=== PATIENT | female | born 1945 | race Caucasian/White ===

== ENCOUNTER 2016-10-31 08:08 | Day surgery (SDC) | payer MEDICARE, OTHER ==
[~2016-10-31 08:08] MED LIST: EPINEPHrine 1:10,000 1 MG/10 ML Syringe ONE; Lactated Ringers 1,000 ML IV SCH; Lactated Ringers 1,000 ML ONE; Lidocaine 2% 5 ML SDV ONE; Midazolam 1 MG/ML 2 ML SDV ONE; Propofol 200 MG/20 ML SDV ONE; Sodium Chloride 0.9% 5 ML Syringe FLUSH PRN; fentaNYL 100 MCG/2 ML SDV ONE
[2016-10-31] MEDS ORDERED: fentaNYL 100 MCG/2 ML SDV IV ONE (09:00)
[2016-10-31] MEDS ORDERED: Midazolam 1 MG/ML 2 ML SDV IV ONE (09:00)
[2016-10-31] MEDS ORDERED: EPINEPHrine 1:10,000 1 MG/10 ML Syringe ONE (09:14)
--- NOTE | 2016-10-31 10:12 | PCM.OPNOTE ---
- General Post-Op/Procedure Note Date of Surgery/Procedure: 10/31/16 Operative Procedure(s): Upper GI endoscopy with biopsy. Primary Surgeon: Steffany Bailey Complications: None Condition: Good Free Text/Narrative:: INFORMED CONSENT: Patient is here today for elective upper GI endoscopy. All aspects of this procedure have been discussed with the patient. All possible complications also, including possibility of perforation, infection, pain, bleeding, numbness of the throat, swallowing difficulty and unknown complications. In the event of perforation the patient may need surgical exploration to repair the defect. The patient understands fully well. Patient did not have any further questions for me at the end of my interview. The patient wishes for me to proceed. INSTRUMENT USED: Video gastroscope ANESTHESIA: [MAC] ASA CLASSIFICATION: [2] PROCEDURE PERFORMED: [upper GI endoscopy with biopsy] PHARYNX: Normal. ESOPHAGUS: Normal. Proximal: Normal. Middle: Normal. Lower: Normal. GE Junction: Normal. STOMACH: Normal. Cardia: Normal. Fundus: Normal. Lesser Curvature: an abnormal hyperemic area with white pustular lesions were seen. Size is approximately 2 cm. Multiple biopsies were taken. approximately 1 cc of epinephrine one is to 10,000 was placed in this area for vasoconstriction and to prevent post procedure bleeding. Greater Curvature: Normal. Antrum: Normal. Pylorus: Normal. DUODENUM: Normal. First Part: Normal. Second Part: Normal. Third Part: Normal. RETROFLEXION: Normal. BIOPSY: None. TOLERANCE: Excellent. COMPLICATIONS: None. Final diagnosis: Abnormal area/growth of the lesser curvature. Photographs taken biopsies are pending.
[2016-10-31 16:31] VITALS: BP 133/75
== END 2016-10-31 11:15 | disposition home or self-care (01) ==
LOC: KA.SDS 08:08
PROVIDERS: ATTEND Family Medicine
DX: K31.7 Polyp of stomach and duodenum (principal); K25.9 Gastric ulcer, unspecified as acute or chronic, without hemorrhage or perforation; I10 Essential (primary) hypertension; E78.5 Hyperlipidemia, unspecified; E66.9 Obesity, unspecified; Z88.2 Allergy status to sulfonamides; Z88.8 Allergy status to other drugs, medicaments and biological substances; Z91.018 Allergy to other foods; Z79.899 Other long term (current) drug therapy; Z68.30 Body mass index [BMI] 30.0-30.9, adult
CPT/HCPCS: 00740; 43239; J0171; J2250; J3010; 88305

== ENCOUNTER 2016-12-19 07:14 | Day surgery (SDC) | payer MEDICARE, OTHER ==
[~2016-12-19 07:14] MED LIST changes: -EPINEPHrine 1:10,000 1 MG/10 ML Syringe ONE; -Lactated Ringers 1,000 ML ONE; -Lidocaine 2% 5 ML SDV ONE; -Midazolam 1 MG/ML 2 ML SDV ONE; -Propofol 200 MG/20 ML SDV ONE; -fentaNYL 100 MCG/2 ML SDV ONE
[2016-12-19] MEDS ORDERED: Propofol 200 MG/20 ML SDV ONE (07:22)
[2016-12-19] MEDS ORDERED: Midazolam 1 MG/ML 2 ML SDV ONE (07:22)
[2016-12-19] MEDS ORDERED: fentaNYL 100 MCG/2 ML SDV ONE (07:22)
[2016-12-19] MEDS ORDERED: Lidocaine 2% 5 ML SDV ONE (07:23)
[2016-12-19] MEDS ORDERED: EPINEPHrine 1:10,000 1 MG/10 ML Syringe ONE ×2 (07:23→08:45)
[2016-12-19] MEDS ORDERED: Propofol 200 MG/20 ML SDV IV ONE (07:30)
[2016-12-19] MEDS ORDERED: Midazolam 1 MG/ML 2 ML SDV IV ONE (07:30)
[2016-12-19] MEDS ORDERED: fentaNYL 100 MCG/2 ML SDV IV ONE (07:30)
--- NOTE | 2016-12-19 10:07 | PCM.OPNOTE ---
- General Post-Op/Procedure Note Date of Surgery/Procedure: 12/19/16 Operative Procedure(s): Upper GI endoscopy and polypectomy x2 Findings: upper GI endoscopy and polypectomy x2 Pre Op Diagnosis: Large polyp of the lesser curvature Post-Op Diagnosis: Large polyp of the lesser curvature and multiple small polyps throughout the mucosa of the stomach Anesthesia Technique: MAC Primary Surgeon: Steffany Bailey Complications: None Condition: Good Free Text/Narrative:: INFORMED CONSENT: Patient is here today for elective upper GI endoscopy. All aspects of this procedure have been discussed with the patient. All possible complications also, including possibility of perforation, infection, pain, bleeding, numbness of the throat, swallowing difficulty and unknown complications. In the event of perforation the patient may need surgical exploration to repair the defect. The patient understands fully well. Patient did not have any further questions for me at the end of my interview. The patient wishes for me to proceed. INSTRUMENT USED: Video gastroscope ANESTHESIA: [MAC] ASA CLASSIFICATION: [2] PROCEDURE PERFORMED: [upper GI endoscopy and polypectomy x2] PHARYNX: Normal. ESOPHAGUS: Normal. Proximal: Normal. Middle: Normal. Lower: Normal. GE Junction: Normal. STOMACH: Normal. Cardia: Normal. Fundus: Normal. Lesser Curvature: A moderately enlarged polyp was identified along the lesser curvature greater using a loop, electrocautery and injection of epinephrine one is to 10,000 I performed polypectomy. Observe the base. polypectomy of one of the smaller polyps was also performed in a similar fashion.There was no bleeding and no complication.. Greater Curvature: Normal. Antrum: Normal. Pylorus: Normal. DUODENUM: Normal. First Part: Normal. Second Part: Normal. Third Part: Normal. RETROFLEXION: Normal. BIOPSY: None. TOLERANCE: Excellent. COMPLICATIONS: None. Final diagnosis: Large polyp of the lesser curvature and multiple small polyps throughout the gastric mucosa. Procedure performed was polypectomy x2
[2016-12-19 11:18] VITALS: BP 124/66
== END 2016-12-19 10:15 | disposition home or self-care (01) ==
LOC: KA.SDS 07:14
PROVIDERS: ATTEND Family Medicine
DX: K31.7 Polyp of stomach and duodenum (principal); K21.9 Gastro-esophageal reflux disease without esophagitis; E66.9 Obesity, unspecified; I10 Essential (primary) hypertension; E78.5 Hyperlipidemia, unspecified; Z88.1 Allergy status to other antibiotic agents; Z91.09 Other allergy status, other than to drugs and biological substances; Z79.82 Long term (current) use of aspirin; Z79.899 Other long term (current) drug therapy; Z68.30 Body mass index [BMI] 30.0-30.9, adult
CPT/HCPCS: 00740; 43239; 88305; J0171; J2250; J2704; J3010; J7120

== ENCOUNTER 2021-01-02 12:12 | Observation (INO) | payer MEDICARE, OTHER ==
[2021-01-02] MEDS ORDERED: Ondansetron 4 MG/2 ML SDV IV PRN (12:15)
[2021-01-02] MEDS ORDERED: EPINEPHrine 1:10,000 1 MG/10 ML Syringe IVPUSH PRN (13:40)
[2021-01-02] MEDS ORDERED: Atropine 0.1 MG/ML 10 ML Syringe IVPUSH PRN (13:40)
[2021-01-02] MEDS ORDERED: Lidocaine 2% 100 MG/5 ML Syringe IVPUSH PRN (13:40)
[2021-01-02] MEDS ORDERED: Nitroglycerin 0.4 MG Tab.SL SL PRN (13:40)
[2021-01-02] MEDS: Dextrose 5%-0.45% NaCl 1,000 ML IV SCH ×2 (14:05→23:56)
[2021-01-02 14:41] LABS: CHLORIDE,CL 106 mmol/L (98-107); SODIUM,NA 144 mmol/L (136-145)
[2021-01-02] MEDS ORDERED: Acetaminophen 325 MG Tab PO PRN (15:37)
[2021-01-02] MEDS ORDERED: Ondansetron 4 MG/2 ML SDV IVPUSH PRN (15:38)
[2021-01-02] MEDS ORDERED: Non-Formulary Medication 1 Each (Carbidopa/Levodopa [Carbidopa-Levo 25-100 Mg Odt] 1 EACH PO PRN (17:19)
[2021-01-02] MEDS ORDERED: TIZANIDINE HCL 2 MG PO PRN (17:19)
[2021-01-02] MEDS: METOPROLOL TARTRATE 50 MG PO SCH (20:09)
[2021-01-02] MEDS ORDERED: OMEPRAZOLE 40 MG PO SCH (21:00)
[2021-01-03 06:06] VITALS: PULSE 71
--- NOTE | 2021-01-03 08:33 | PCM.PN ---
- Patient Data Vitals - Most Recent: Last Vital Signs Temp 97.9 F 01/03/21 06:06 Pulse 71 01/03/21 06:06 Resp 20 01/03/21 06:06 BP 158/77 H 01/03/21 06:06 Pulse Ox 92 L 01/03/21 06:06 Weight - Most Recent: 172 lb I&O - Last 24 Hours: Intake & Output 01/02/21 01/03/21 01/03/21 22:59 06:59 14:59 Intake Total 1274 974 Balance 1274 974 Lab Results Last 24 Hours: Laboratory Results - last 24 hr 01/02/21 01/02/21 01/02/21 Range/Units 13:55 13:55 14:50 WBC 7.84 (5.00-10.00) 10^3/uL RBC 4.76 (3.80-5.50) 10^6/uL Hgb 13.8 (12.0-16.0) g/dL Hct 43.0 (37.0-47.0) % MCV 90.3 (82.0-92.0) fL MCH 29.0 (27.0-31.0) pg MCHC 32.1 (32.0-36.0) g/dL RDW 13.8 (11.5-14.5) % Plt Count 194 (150-400) 10^3/uL MPV 10.4 (7.4-10.4) fL Immature Gran % (Auto) 0.1 (0.0-5.0) % Neut % (Auto) 85.5 H (50.0-70.0) % Lymph % (Auto) 8.3 L (20.0-40.0) % [place] % (Auto) 5.5 (2.0-8.0) % Eos % (Auto) 0.3 L (1.0-3.0) % Baso % (Auto) 0.3 (0.0-1.0) % Neut # (Auto) 6.71 (2.50-7.00) 10^3/uL Lymph # (Auto) 0.65 L (1.00-4.00) 10^3/uL [place] # (Auto) 0.43 (0.10-0.80) 10^3/uL Eos # (Auto) 0.02 L (0.10-0.30) 10^3/uL Baso # (Auto) 0.02 (0.00-0.10) 10^3/uL Immature Gran # (Auto) 0.01 (0.00-0.50) 10^3/uL Sodium 144 (136-145) mmol/L Potassium 4.0 (3.5-5.1) mmol/L Chloride 106 (98-107) mmol/L Carbon Dioxide 29.0 (21.0-32.0) mmol/L Anion Gap 13.0 (5-15) mmol/L BUN 26 H (7-18) mg/dL Creatinine 0.65 (0.51-1.17) mg/dL Est Cr Clr Drug Dosing 52.89 mL/min Estimated GFR (MDRD) > 60 mL/min Glucose 131 (70-140) mg/dL Calcium 8.6 L (8.7-10.3) mg/dL Total Bilirubin 0.8 (0.2-1.0) mg/dL AST 77 H (15-37) U/L ALT 73 H (14-63) U/L Alkaline Phosphatase 103 (46-116) U/L Troponin I High Sens 4.800 (0-51.000) pg/mL Total Protein 6.8 (6.4-8.2) g/dL Albumin 3.59 (3.40-5.00) g/dL SARS CoV-2 RNA Rapid KEILA Negative (NEGATIVE) 01/02/21 01/03/21 Range/Units 20:00 07:00 WBC 5.71 (5.00-10.00) 10^3/uL RBC 4.44 (3.80-5.50) 10^6/uL Hgb 12.9 (12.0-16.0) g/dL Hct 40.9 (37.0-47.0) % MCV 92.1 H (82.0-92.0) fL MCH 29.1 (27.0-31.0) pg MCHC 31.5 L (32.0-36.0) g/dL RDW 13.8 (11.5-14.5) % Plt Count 178 (150-400) 10^3/uL MPV 10.2 (7.4-10.4) fL Immature Gran % (Auto) 0.4 (0.0-5.0) % Neut % (Auto) 72.5 H (50.0-70.0) % Lymph % (Auto) 17.2 L (20.0-40.0) % [place] % (Auto) 8.1 H (2.0-8.0) % Eos % (Auto) 1.4 (1.0-3.0) % Baso % (Auto) 0.4 (0.0-1.0) % Neut # (Auto) 4.15 (2.50-7.00) 10^3/uL Lymph # (Auto) 0.98 L (1.00-4.00) 10^3/uL [place] # (Auto) 0.46 (0.10-0.80) 10^3/uL Eos # (Auto) 0.08 L (0.10-0.30) 10^3/uL Baso # (Auto) 0.02 (0.00-0.10) 10^3/uL Immature Gran # (Auto) 0.02 (0.00-0.50) 10^3/uL Sodium (136-145) mmol/L Potassium (3.5-5.1) mmol/L Chloride (98-107) mmol/L Carbon Dioxide (21.0-32.0) mmol/L Anion Gap (5-15) mmol/L BUN (7-18) mg/dL Creatinine (0.51-1.17) mg/dL Est Cr Clr Drug Dosing mL/min Estimated GFR (MDRD) mL/min Glucose (70-140) mg/dL Calcium (8.7-10.3) mg/dL Total Bilirubin (0.2-1.0) mg/dL AST (15-37) U/L ALT (14-63) U/L Alkaline Phosphatase (46-116) U/L Troponin I High Sens 5.600 (0-51.000) pg/mL Total Protein (6.4-8.2) g/dL Albumin (3.40-5.00) g/dL SARS CoV-2 RNA Rapid KEILA (NEGATIVE) Med Orders - Current: Current Medications Acetaminophen (Acetaminophen 325 Mg Tab) 650 mg PO Q6H PRN PRN Reason: Pain Amlodipine Besylate (Amlodipine 2.5 Mg TabOwn Med) 2.5 mg PO DAILY [facility] Atropine Sulfate (Atropine 0.1 Mg/Ml 10 Ml Syringe) 0 mg IVPUSH ASDIRECTED PRN PRN Reason: Heart. Epinephrine HCl (Epinephrine 1:10,000 1 Mg/10 Ml Syringe) 1 mg IVPUSH ASDIRECTED PRN PRN Reason: Heart. Fluticasone Propionate (Fluticasone Propionate Nasal [place] 16 Gm Bottle) 0 gm NASBOTH DAILY [facility] Dextrose/Sodium Chloride (Dextrose 5%-1/2 Ns) 1,000 mls @ 100 mls/hr IV ASDIRECTED [facility] Last Admin: 01/02/21 23:56 Dose: 100 mls/hr Documented by: Lidocaine HCl (Lidocaine 2% 100 Mg/5 Ml Syringe) 0 mg IVPUSH ASDIRECTED PRN PRN Reason: Heart. Nitroglycerin (Nitroglycerin 0.4 Mg Tab.Sl) 0.4 mg SL ASDIRECTED PRN PRN Reason: Heart. Duloxetine 60 Mg Cap 60 mg PO DAILY [facility] Lisinopril 40 Mg (TabletOwn Med) 40 mg PO DAILY [facility] Metoprolol Tartrate 50 Mg TabletOwn Med 50 mg PO BID [facility] Last Admin: 01/02/21 20:09 Dose: 50 mg Documented by: Omeprazole 40 Mg Cap (Own Med) 40 mg PO BEDTIME [facility] Last Admin: 01/02/21 20:09 Dose: 40 mg Documented by: Ropinirole 1 Mg (Tablet) 2 mg PO BEDTIME [facility] Last Admin: 01/02/21 20:10 Dose: 2 mg Documented by: Ondansetron HCl (Ondansetron 4 Mg/2 Ml Sdv) 4 mg IVPUSH Q6H PRN PRN Reason: Nausea/Vomiting Discontinued Medications Ondansetron HCl (Ondansetron 4 Mg/2 Ml Sdv) 4 mg IV Q8H PRN PRN Reason: Nausea/Vomiting - Patient Data Lab Results Last 24 hrs: Laboratory Results - last 24 hr 01/02/21 01/02/21 01/02/21 Range/Units 13:55 13:55 14:50 WBC 7.84 (5.00-10.00) 10^3/uL RBC 4.76 (3.80-5.50) 10^6/uL Hgb 13.8 (12.0-16.0) g/dL Hct 43.0 (37.0-47.0) % MCV 90.3 (82.0-92.0) fL MCH 29.0 (27.0-31.0) pg MCHC 32.1 (32.0-36.0) g/dL RDW 13.8 (11.5-14.5) % Plt Count 194 (150-400) 10^3/uL MPV 10.4 (7.4-10.4) fL Immature Gran % (Auto) 0.1 (0.0-5.0) % Neut % (Auto) 85.5 H (50.0-70.0) % Lymph % (Auto) 8.3 L (20.0-40.0) % [place] % (Auto) 5.5 (2.0-8.0) % Eos % (Auto) 0.3 L (1.0-3.0) % Baso % (Auto) 0.3 (0.0-1.0) % Neut # (Auto) 6.71 (2.50-7.00) 10^3/uL Lymph # (Auto) 0.65 L (1.00-4.00) 10^3/uL [place] # (Auto) 0.43 (0.10-0.80) 10^3/uL Eos # (Auto) 0.02 L (0.10-0.30) 10^3/uL Baso # (Auto) 0.02 (0.00-0.10) 10^3/uL Immature Gran # (Auto) 0.01 (0.00-0.50) 10^3/uL Sodium 144 (136-145) mmol/L Potassium 4.0 (3.5-5.1) mmol/L Chloride 106 (98-107) mmol/L Carbon Dioxide 29.0 (21.0-32.0) mmol/L Anion Gap 13.0 (5-15) mmol/L BUN 26 H (7-18) mg/dL Creatinine 0.65 (0.51-1.17) mg/dL Est Cr Clr Drug Dosing 52.89 mL/min Estimated GFR (MDRD) > 60 mL/min Glucose 131 (70-140) mg/dL Calcium 8.6 L (8.7-10.3) mg/dL Total Bilirubin 0.8 (0.2-1.0) mg/dL AST 77 H (15-37) U/L ALT 73 H (14-63) U/L Alkaline Phosphatase 103 (46-116) U/L Troponin I High Sens 4.800 (0-51.000) pg/mL Total Protein 6.8 (6.4-8.2) g/dL Albumin 3.59 (3.40-5.00) g/dL SARS CoV-2 RNA Rapid KEILA Negative (NEGATIVE) 01/02/21 01/03/21 Range/Units 20:00 07:00 WBC 5.71 (5.00-10.00) 10^3/uL RBC 4.44 (3.80-5.50) 10^6/uL Hgb 12.9 (12.0-16.0) g/dL Hct 40.9 (37.0-47.0) % MCV 92.1 H (82.0-92.0) fL MCH 29.1 (27.0-31.0) pg MCHC 31.5 L (32.0-36.0) g/dL RDW 13.8 (11.5-14.5) % Plt Count 178 (150-400) 10^3/uL MPV 10.2 (7.4-10.4) fL Immature Gran % (Auto) 0.4 (0.0-5.0) % Neut % (Auto) 72.5 H (50.0-70.0) % Lymph % (Auto) 17.2 L (20.0-40.0) % [place] % (Auto) 8.1 H (2.0-8.0) % Eos % (Auto) 1.4 (1.0-3.0) % Baso % (Auto) 0.4 (0.0-1.0) % Neut # (Auto) 4.15 (2.50-7.00) 10^3/uL Lymph # (Auto) 0.98 L (1.00-4.00) 10^3/uL [place] # (Auto) 0.46 (0.10-0.80) 10^3/uL Eos # (Auto) 0.08 L (0.10-0.30) 10^3/uL Baso # (Auto) 0.02 (0.00-0.10) 10^3/uL Immature Gran # (Auto) 0.02 (0.00-0.50) 10^3/uL Sodium (136-145) mmol/L Potassium (3.5-5.1) mmol/L Chloride (98-107) mmol/L Carbon Dioxide (21.0-32.0) mmol/L Anion Gap (5-15) mmol/L BUN (7-18) mg/dL Creatinine (0.51-1.17) mg/dL Est Cr Clr Drug Dosing mL/min Estimated GFR (MDRD) mL/min Glucose (70-140) mg/dL Calcium (8.7-10.3) mg/dL Total Bilirubin (0.2-1.0) mg/dL AST (15-37) U/L ALT (14-63) U/L Alkaline Phosphatase (46-116) U/L Troponin I High Sens 5.600 (0-51.000) pg/mL Total Protein (6.4-8.2) g/dL Albumin (3.40-5.00) g/dL SARS CoV-2 RNA Rapid KEILA (NEGATIVE) Result Diagrams: 01/03/21 07:00 01/02/21 13:55 Sepsis Event Note - Evaluation Sepsis Screening Result: No Definite Risk - Focused Exam Vital Signs: Vital Signs Temp Pulse Resp BP Pulse Ox 01/03/21 06:06 97.9 F 71 20 158/77 H 92 L 01/03/21 03:00 97.9 F 68 18 141/69 H 93 L 01/02/21 22:58 97.1 F 64 18 130/56 L 95 - Assessment Assessment:: LIve in [place], seen yesterday walking around town, went to dental office, started to get dizzy, nasusea, profuse sweating, went to dental, BP 150/90, advised to go to clinic, walk, stil sweating, vomiting 4-5x n clinic. 154/90 was highrest, No tacy, EKG normal, sweat went away. When movement she had had vomting. ?hearin loss, no cp been tired past several days, sleeping alot. Main hx HTN, HLD, famly hx heart. 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 At times she skips meds or double up on BP pills. Seems to have these epiusode monthly. Inner Ear. Dehyrdation. GERD Prediabetes Vit D deff Obesity Venous Insurriciency Arthrist Lumbar RLS Chronic Rhinitis Dermatitis
[2021-01-03] MEDS: METOPROLOL TARTRATE 50 MG PO SCH (08:51)
[2021-01-03 08:56] VITALS: BP 145/71
[2021-01-03] MEDS ORDERED: Non-Formulary Medication 1 Each (Psyllium [Metamucil] 0.52 GM Cap) PO SCH (09:00)
[2021-01-03] MEDS ORDERED: AMLODIPINE 2.5 MG PO SCH (09:00)
[2021-01-03] MEDS ORDERED: Fluticasone Propionate Nasal Spray 16 GM Bottle NASBOTH SCH (09:00)
[2021-01-03] MEDS ORDERED: Non-Formulary Medication 1 Each (Cholecalciferol (Vitamin D3) [Vitamin D3] 2,000 UNIT Caps PO SCH (09:00)
[2021-01-03] MEDS ORDERED: UBIDECARENONE 200 MG PO SCH (09:00)
[2021-01-03] MEDS ORDERED: LISINOPRIL 40 MG PO SCH (09:00)
[2021-01-03 10:10] LABS: ANION GAP 9.7 mmol/L (5-15); CHLORIDE,CL 106 mmol/L (98-107); SODIUM,NA 144 mmol/L (136-145)
--- NOTE | 2021-01-03 10:23 | PCM.DCSUM1 ---
Discharge Summary - Hospital Course Diagnosis: Stroke: No - Discharge Data Discharge Date: 01/03/21 Discharge Disposition: Home, Self-Care 01 Condition: Good - Referral to Home Health Primary Care Physician: Tori Tong MD - Patient Instructions Diet: Usual Diet as Tolerated, Drink 8-10+ Glasses/Day Activity: No Strenuous Activities Driving: May Drive Today Showering/Bathing: May Shower - Discharge Plan *PRESCRIPTION DRUG MONITORING PROGRAM REVIEWED*: Not Applicable *COPY OF PRESCRIPTION DRUG MONITORING REPORT IN PATIENT VIJAYA: Not Applicable Home Medications: Home Meds Carbidopa/Levodopa [Carbidopa-Levo 25-100 MG ODT] 1 each PO DAILY PRN 10/30/16 [History] Lisinopril 40 mg PO DAILY 10/30/16 [History] Metoprolol Tartrate [Lopressor] 50 mg PO BID 10/30/16 [History] Nystatin/Triamcinolone Crm [Mycolog Crm] 30 gm TOP BID PRN 10/30/16 [History] amLODIPine [Norvasc] 2.5 mg PO DAILY 10/30/16 [History] rOPINIRole [Requip] 2 mg PO BEDTIME 10/30/16 [History] tiZANidine HCl [Zanaflex] 2 mg PO DAILY PRN 10/30/16 [History] Omeprazole 40 mg PO BEDTIME 10/31/16 [History] Betamethasone Dipropionate [Diprosone 0.05% Crm] 15 gm TOP BID PRN 01/02/21 [History] Cholecalciferol (Vitamin D3) [Vitamin D3] 2,000 unit PO DAILY 01/02/21 [History] DULoxetine [Cymbalta] 60 mg PO DAILY 01/02/21 [History] Fluticasone Propionate [Flonase] 1 spray NASBOTH DAILY 01/02/21 [History] Psyllium [Metamucil] 0.52 gm PO DAILY 01/02/21 [History] Ubidecarenone [Coenzyme Q-10] 200 mg PO DAILY 01/02/21 [History] - Discharge Summary/Plan Comment DC Time >30 min.: Yes Discharge Summary/Plan Comment: History summary (history from patient and received over the phone from admitting provider as no H&P on file to date) Ms Quintanilla is a 75-year-old female that was admitted by Shantell Bustamante PA-C due to dizziness with a working diagnosis of suspected Mnire's disease. Patient was walking around town yesterday went to dental office then started getting dizzy with significant nausea profuse sweating. BP at dental office 150/90 she was advised to seek care. Admitting provider describes her clinical course as significant profuse sweating eventually abating, initial BP 154/90, no tachycardia, normal EKG, significant vomiting however no chest pain. In speaking with patient and family patient seems to have episodic at least once a month of similar symptoms. Denies hearing loss however does wear hearing aids with frequent ear infections as a child. No immunological/rheumatological disorders. 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 Main past medical history includes hypertension, chronic rhinitis with polyp history, hyperlipidemia family hx disease, prediabetes, acid reflux which she states not controlled, vitamin D deficiency, venous insufficiency and arthritis in her lumbar region along with restless legs syndrome with breakthrough symptoms. Primary problems Vertigo, suspect volume deficit/stress-induced-- doubtful Mnire's or vestibular etiology based off of history, clinical exam findings Medication changes/adjustments upon discharge None, continue all medications, advised not to skip meds Disposition/overall plan Patient will be discharged from outpatient status, she was ambulated on the floor and hydrated last night, back to her baseline, no dizziness, vertigo, nystagmus, well hydrated with no edema. She was advised to reduce stress, may have to see ENT, stay well-hydrated she will see her PCP Dr. Tong for follow-up - General Info Functional Status: Reports: Pain Controlled, Tolerating Diet, Ambulating, Urinating - Review of Systems General: Reports: No Symptoms HEENT: Reports: No Symptoms Pulmonary: Denies: Shortness of Breath, Pleuritic Chest Pain, Cough, Wheezing Cardiovascular: Denies: Chest Pain, Orthopnea, PND, Edema Gastrointestinal: Denies: Nausea, Vomiting Genitourinary: Reports: No Symptoms Musculoskeletal: Reports: No Symptoms Skin: Reports: No Symptoms Neurological: Denies: Confusion, Dizziness, Weakness Psychiatric: Reports: Anxiety (chronic) - Patient Data Vitals - Most Recent: Last Vital Signs Temp 97.9 F 01/03/21 06:06 Pulse 71 01/03/21 06:06 Resp 20 01/03/21 06:06 BP 145/71 H 01/03/21 08:55 Pulse Ox 92 L 01/03/21 06:06 Weight - Most Recent: 172 lb I&O - Last 24 hours: Intake & Output 01/02/21 01/03/21 01/03/21 22:59 06:59 14:59 Intake Total 1274 974 Balance 1274 974 Lab Results - Last 24 hrs: Laboratory Results - last 24 hr 01/02/21 01/02/21 01/02/21 Range/Units 13:55 13:55 14:50 WBC 7.84 (5.00-10.00) 10^3/uL RBC 4.76 (3.80-5.50) 10^6/uL Hgb 13.8 (12.0-16.0) g/dL Hct 43.0 (37.0-47.0) % MCV 90.3 (82.0-92.0) fL MCH 29.0 (27.0-31.0) pg MCHC 32.1 (32.0-36.0) g/dL RDW 13.8 (11.5-14.5) % Plt Count 194 (150-400) 10^3/uL MPV 10.4 (7.4-10.4) fL Immature Gran % (Auto) 0.1 (0.0-5.0) % Neut % (Auto) 85.5 H (50.0-70.0) % Lymph % (Auto) 8.3 L (20.0-40.0) % [place] % (Auto) 5.5 (2.0-8.0) % Eos % (Auto) 0.3 L (1.0-3.0) % Baso % (Auto) 0.3 (0.0-1.0) % Neut # (Auto) 6.71 (2.50-7.00) 10^3/uL Lymph # (Auto) 0.65 L (1.00-4.00) 10^3/uL [place] # (Auto) 0.43 (0.10-0.80) 10^3/uL Eos # (Auto) 0.02 L (0.10-0.30) 10^3/uL Baso # (Auto) 0.02 (0.00-0.10) 10^3/uL Immature Gran # (Auto) 0.01 (0.00-0.50) 10^3/uL Sodium 144 (136-145) mmol/L Potassium 4.0 (3.5-5.1) mmol/L Chloride 106 (98-107) mmol/L Carbon Dioxide 29.0 (21.0-32.0) mmol/L Anion Gap 13.0 (5-15) mmol/L BUN 26 H (7-18) mg/dL Creatinine 0.65 (0.51-1.17) mg/dL Est Cr Clr Drug Dosing 52.89 mL/min Estimated GFR (MDRD) > 60 mL/min Glucose 131 (70-140) mg/dL Calcium 8.6 L (8.7-10.3) mg/dL Total Bilirubin 0.8 (0.2-1.0) mg/dL AST 77 H (15-37) U/L ALT 73 H (14-63) U/L Alkaline Phosphatase 103 (46-116) U/L Troponin I High Sens 4.800 (0-51.000) pg/mL Total Protein 6.8 (6.4-8.2) g/dL Albumin 3.59 (3.40-5.00) g/dL SARS CoV-2 RNA Rapid [facility] Negative (NEGATIVE) 01/02/21 01/03/21 Range/Units 20:00 07:00 WBC 5.71 (5.00-10.00) 10^3/uL RBC 4.44 (3.80-5.50) 10^6/uL Hgb 12.9 (12.0-16.0) g/dL Hct 40.9 (37.0-47.0) % MCV 92.1 H (82.0-92.0) fL MCH 29.1 (27.0-31.0) pg MCHC 31.5 L (32.0-36.0) g/dL RDW 13.8 (11.5-14.5) % Plt Count 178 (150-400) 10^3/uL MPV 10.2 (7.4-10.4) fL Immature Gran % (Auto) 0.4 (0.0-5.0) % Neut % (Auto) 72.5 H (50.0-70.0) % Lymph % (Auto) 17.2 L (20.0-40.0) % [place] % (Auto) 8.1 H (2.0-8.0) % Eos % (Auto) 1.4 (1.0-3.0) % Baso % (Auto) 0.4 (0.0-1.0) % Neut # (Auto) 4.15 (2.50-7.00) 10^3/uL Lymph # (Auto) 0.98 L (1.00-4.00) 10^3/uL [place] # (Auto) 0.46 (0.10-0.80) 10^3/uL Eos # (Auto) 0.08 L (0.10-0.30) 10^3/uL Baso # (Auto) 0.02 (0.00-0.10) 10^3/uL Immature Gran # (Auto) 0.02 (0.00-0.50) 10^3/uL Sodium (136-145) mmol/L Potassium (3.5-5.1) mmol/L Chloride (98-107) mmol/L Carbon Dioxide (21.0-32.0) mmol/L Anion Gap (5-15) mmol/L BUN (7-18) mg/dL Creatinine (0.51-1.17) mg/dL Est Cr Clr Drug Dosing mL/min Estimated GFR (MDRD) mL/min Glucose (70-140) mg/dL Calcium (8.7-10.3) mg/dL Total Bilirubin (0.2-1.0) mg/dL AST (15-37) U/L ALT (14-63) U/L Alkaline Phosphatase (46-116) U/L Troponin I High Sens 5.600 (0-51.000) pg/mL Total Protein (6.4-8.2) g/dL Albumin (3.40-5.00) g/dL SARS CoV-2 RNA Rapid KEILA (NEGATIVE) Med Orders - Current: Current Medications Acetaminophen (Acetaminophen 325 Mg Tab) 650 mg PO Q6H PRN PRN Reason: Pain Amlodipine Besylate (Amlodipine 2.5 Mg TabOwn Med) 2.5 mg PO DAILY [facility] Last Admin: 01/03/21 08:55 Dose: 2.5 mg Documented by: Atropine Sulfate (Atropine 0.1 Mg/Ml 10 Ml Syringe) 0 mg IVPUSH ASDIRECTED PRN PRN Reason: Heart. Epinephrine HCl (Epinephrine 1:10,000 1 Mg/10 Ml Syringe) 1 mg IVPUSH ASDIRECTED PRN PRN Reason: Heart. Fluticasone Propionate (Fluticasone Propionate Nasal [place] 16 Gm Bottle) 0 gm NASBOTH DAILY [facility] Last Admin: 01/03/21 08:54 Dose: 1 spray Documented by: Dextrose/Sodium Chloride (Dextrose 5%-1/2 Ns) 1,000 mls @ 100 mls/hr IV ASDIRECTED [facility] Last Admin: 01/02/21 23:56 Dose: 100 mls/hr Documented by: Lidocaine HCl (Lidocaine 2% 100 Mg/5 Ml Syringe) 0 mg IVPUSH ASDIRECTED PRN PRN Reason: Heart. Nitroglycerin (Nitroglycerin 0.4 Mg Tab.Sl) 0.4 mg SL ASDIRECTED PRN PRN Reason: Heart. Duloxetine 60 Mg Cap 60 mg PO DAILY [facility] Last Admin: 01/03/21 08:50 Dose: 60 mg Documented by: Lisinopril 40 Mg (TabletOwn Med) 40 mg PO DAILY [facility] Last Admin: 01/03/21 08:51 Dose: 40 mg Documented by: Metoprolol Tartrate 50 Mg TabletOwn Med 50 mg PO BID [facility] Last Admin: 01/03/21 08:51 Dose: 50 mg Documented by: Omeprazole 40 Mg Cap (Own Med) 40 mg PO BEDTIME [facility] Last Admin: 01/02/21 20:09 Dose: 40 mg Documented by: Ropinirole 1 Mg (Tablet) 2 mg PO BEDTIME [facility] Last Admin: 01/02/21 20:10 Dose: 2 mg Documented by: Ondansetron HCl (Ondansetron 4 Mg/2 Ml Sdv) 4 mg IVPUSH Q6H PRN PRN Reason: Nausea/Vomiting Discontinued Medications Ondansetron HCl (Ondansetron 4 Mg/2 Ml Sdv) 4 mg IV Q8H PRN PRN Reason: Nausea/Vomiting - Exam Quality Assessment: Denies: Supplemental Oxygen General: Reports: Alert, Oriented, Cooperative, No Acute Distress HEENT: Reports: Pupils Equal, Pupils Reactive Neck: Reports: Supple Lungs: Reports: Clear to Auscultation, Normal Respiratory Effort Cardiovascular: Reports: Regular Rate, Regular Rhythm, Tachycardia GI/Abdominal Exam: Normal Bowel Sounds (Female) Exam: Deferred Extremities: Normal Inspection. No: Pedal Edema Skin: Reports: Warm, Dry, Intact Neurological: Reports: Normal Gait, Normal Speech, Normal Tone, Other (no pronator drift) Psy/Mental Status: Reports: Alert, Normal Affect, Normal Mood. Denies: Labile Mood
== END 2021-01-03 11:00 | disposition home or self-care (01) ==
LOC: KA.MS 13:11
PROVIDERS: ADMIT Physician Assistant Medical; ATTEND Family Medicine
DX: R42 Dizziness and giddiness (principal); R11.2 Nausea with vomiting, unspecified; I10 Essential (primary) hypertension; E78.5 Hyperlipidemia, unspecified; R73.03 Prediabetes; Z20.822 Contact with and (suspected) exposure to COVID-19; Z88.2 Allergy status to sulfonamides; Z91.048 Other nonmedicinal substance allergy status; Z79.899 Other long term (current) drug therapy
CPT/HCPCS: 36415; 80053; 84484; 85025; 93005; A9270-GY; G0378; J7042; U0002